=== PATIENT | female | born 1975 | race Caucasian/White ===

== ENCOUNTER 2017-05-28 06:33 | Day surgery (SDC) | payer OTHER ==
[~2017-05-28] VITALS: Ht 162.6 cm; Wt 49.0 kg
[2017-05-28 07:06] VITALS: BP 112/73
[2017-05-28] MEDS ORDERED: NORCO 5/3251 TABLET PO (09:53)
[2017-05-28 10:25] LABS: INTERNAL CONTROL VALID? YES
[2017-05-28 11:46] VITALS: BP 121/79
[2017-05-28 12:36] VITALS: BP 128/83
== END 2017-05-28 12:50 | disposition home or self-care (01) ==
LOC: SDC 06:33
PROVIDERS: Surgery
PROC: 0FT44ZZ Resection of Gallbladder, Percutaneous Endoscopic Approach (ICD-10-PCS; principal; 2017-05-28)
DX: K80.10 Calculus of gallbladder with chronic cholecystitis without obstruction (principal); F17.210 Nicotine dependence, cigarettes, uncomplicated; Z82.49 Family history of ischemic heart disease and other diseases of the circulatory system; Z80.0 Family history of malignant neoplasm of digestive organs; Z84.1 Family history of disorders of kidney and ureter; Z83.3 Family history of diabetes mellitus
CPT/HCPCS: 84703; 88304; J0131; J1100; J1170; J1885; J2250; J2405; J2710